=== PATIENT | female | born 1955 | race Caucasian/White ===

== ENCOUNTER 2022-09-29 20:06 | Emergency (ER) | payer OTHER, SELFPAY ==
[2022-09-29] VITALS (8 sets, daily range): BP systolic 118–132; BP diastolic 67–84; PULSE 61–74; RESP 14–19; TEMP 36.3; O2SAT 96–100; BMI 29.2
--- NOTE | 2022-09-29 20:16 | DI.CT.S_ITS ---
5PROCEDURE: CT ANGIO HEAD AND NECK INDICATIONS: double vision 1600,sx resolved now. TECHNIQUE: Pre-contrast 4.5 mm thick sections acquired from the foramen magnum to the vertex. After the administration of intravenous contrast, 1 mm thick sections acquired from the aortic arch through the [place]. Post-contrast 4.5 mm thick sections then re-acquired from the foramen magnum to the vertex. 3-dimensional batjfsx-iebvwpdhg-zfxcxiimld (MIP) and/or volume rendering reformats were acquired of the central intracranial vasculature and neck separately. For radiation dose reduction, the following was used: automated exposure control, adjustment of mA and/or kV according to patient size. COMPARISON: None. FINDINGS: Image quality: Excellent. BRAIN: CSF spaces: Ventricles are normal in size and shape. Basal cisterns are patent. No extra-axial fluid collections. Brain: No midline shift. No intracranial bleeds or masses. [place]-white matter interface appears intact. Skull and face: Calvarium and facial bones appear intact, without suspicious lesions. Orbits appear normal. Sinuses: Sinuses and mastoids are clear which appears hypoplastic HEAD CT ANGIOGRAPHY: Anterior circulation: Intracranial internal carotid arteries are normal in size and flow. The flow within the paired anterior cerebral arteries is normal and symmetric. The flow within the middle cerebral arteries is normal and symmetric. The anterior communicating artery is seen. No aneurysms are seen. Posterior circulation: Visualized portions of the vertebral arteries demonstrate normal caliber, and join to form a normal appearing basilar artery. Flow within the posterior cerebral arteries is normal and symmetric. No aneurysms are seen. NECK CT ANGIOGRAPHY: Carotid system: The great vessels demonstrate a conventional anatomy as they arise from the aortic arch. The origins of the common carotid arteries appear patent. The common carotid arteries demonstrate normal caliber and courses. The bifurcation regions are both widely patent. The internal carotid arteries demonstrate normal calibers and courses. Posterior circulation: The origins of the vertebral arteries both appear widely patent. The more superior extracranial portions of both vertebral arteries also demonstrate normal courses and calibers. They join to form a normal appearing basilar artery. Soft tissues: Visualized neck soft tissues demonstrate no suspicious abnormalities. Bones: No suspicious bony lesions. Visualized cervical spine appears normally aligned. IMPRESSION: No arterial abnormality seen, no lesion identified in the skull base or occipital region bilaterally. Orbits appear normal, source of current symptoms is not seen. Any quantitative measurements of stenosis were performed using NASCET criteria. Dictated by: Hakan Briggs M.D. on 09/29/2022 at 21:09 Approved by: Hakan Briggs M.D. on 09/29/2022 at 21:13
[2022-09-29 21:01] LABS: Add Manual Diff / Slide Review NO; Basophils Absolute Auto 100 /uL (0-100); Basophils Percent Auto 1.1 % (0-2); Eosinophils Absolute Auto 100 /uL (0-450); Eosinophils Percent Auto 1.9 % (2-4); Hematocrit 38.1 % (36-46); Hemoglobin 13.3 g/dL (12.0-16.0); Lymphocytes Absolute Auto 2200 /uL (1100-4500); Mean Corpuscular HGB Conc 34.8 % (30-36); Mean Corpuscular Hemoglobin 32.4 PG (26-34); Monocytes Absolute Auto 600 /uL (0-900); Monocytes Percent Auto 10.3 % (3-14); Neutrophils Absolute Auto 3100 /uL (1500-7000); Neutrophils Percent Auto 50.7 % (50-75); Platelet Count 202 X10^3/uL (150-400); Red Blood Cell Count 4.09 X10^6/uL (4.0-5.2); Red Cell Distribution Width 12.6 % (11.6-14.8); White Blood Cell Count 6.1 X10^3/uL (4.5-11.0)
[2022-09-29 21:12] LABS: Alanine Aminotransferase 28 IU/L (<35); Albumin 4.3 g/dL (3.5-5.0); Albumin Globulin Ratio 1.3 (1.0-2.8); Alkaline Phosphatase 51 U/L (38-126); Aspartate Aminotransferase 27 IU/L (14-36); BUN Creatinine Ratio 14.7 (6-22); Bilirubin Total 0.4 mg/dL (0.2-1.3); Blood Urea Nitrogen 14 mg/dL (7-17); Calcium 8.9 mg/dL (8.4-10.2); Carbon Dioxide 25 mmol/L (22-32); Chloride 105 mmol/L (98-107); Estimated Glomerular Filt Rate > 60 mL/min (>60); Globulin 3.2 g/dL (1.7-4.1); Glucose 88 mg/dL (80-110); HEMOLYSIS < 15 (0-50); Sodium 139 mmol/L (137-145); Total Protein 7.5 g/dL (6.3-8.2)
[2022-09-29 21:29] LABS: Creatine Kinase 248 U/L (30-135)
[2022-09-29 21:42] LABS: Troponin I < 0.012 ng/mL (0.01-0.034)
[2022-09-29 21:44] LABS: CKMB % Relative Index 0.4 % (1.5-5.0); Creatine Kinase MB 1.04 ng/mL (<2.37)
--- NOTE | 2022-09-29 22:14 | ED_ITS ---
HPI - Eye Problem General Chief complaint: Eye Problems Stated complaint: Double vision Time Seen by Provider: 09/29/22 21:00 Source: patient Mode of arrival: Ambulatory History of Present Illness HPI Narrative: Patient is a 67-year-old female history of hyperlipidemia depression presents today with double vision lasting for a couple of hours. She reports that she was out on the boat today in the heat when she started noticing double vision. He states that awhile she saw 2 of everything, however when she used binocular hours she then only saw 1. She denies drinking any alcohol or any other drugs. She was staying hydrated. She was feeling her normal self this morning. Symptoms have completely resolved now. She denies any loss of vision no numbness tingling weakness facial droop confusion or other symptoms. Related Data Allergies Allergy/AdvReac Type Severity Reaction Status Date / Time No Known Drug Allergies Allergy Verified 09/29/22 20:11 Review of Systems Review of Systems ROS Unobtainable: All systems reviewed & are unremarkable except as noted in HPI and below Patient History Social History Smoking Status: Unknown if ever smoked Smoking Status: Unknown if ever smoked alcohol intake frequency: holidays/special occasions only Substance Use Type: does not use Exam Initial Vital Signs Initial Vital Signs: Vital Signs Temperature 97.4 F L 09/29/22 20:11 Pulse Rate 71 09/29/22 20:11 Respiratory Rate 15 09/29/22 20:11 Blood Pressure 122/74 09/29/22 20:11 Pulse Oximetry 97 09/29/22 20:11 Oxygen Delivery Method Room Air 09/29/22 20:11 GENERAL: Alert pleasant 67-year-old female HEENT: Head atraumatic,EOMI, pupils reactive, face symmetric, moist mucous membranes CARDIOVASCULAR: Regular rate and rhythm without murmurs, rubs or gallops. RESPIRATORY: Breath sounds equal bilaterally, no wheezes rales or rhonchi. ABDOMEN: Soft, nontender. Normoactive bowel sounds all 4 quadrants. No guarding or rebound. EXTREMITIES: Normal range of motion, no clubbing or edema. Neurovascularly intact NEUROLOGICAL: Alert and oriented x4.Normal gait and speech. Cranial nerves II through XII grossly intact. Good suagkp-pp-dtli, good mpxd-da-dckw, strength equal bilaterally, no dysarthria or aphasia, sensation in tact to soft touch bilaterally, no visual changes, no facial droop SKIN: Warm, dry, no laceration, no petechiae, no rashes or lesions. Scores NIH Stroke Scale Level of Conciousness: Alert, keenly responsive Ask month/age: Answers both questions correctly. Open/close eyes, close hand: Performs both tasks correctly Best gaze horizontal: Normal Visual kessler: No visual loss Facial palsy: Normal symetrical movement Left arm drift: No drift for full 10 sec Right arm drift: No drift for full 10 sec Left leg drift: No drift for full 5 sec Right leg drift: No drift for full 5 sec Limb ataxia: Absent Sensory on face/arms/legs: Normal, no sensory loss Best language: No aphasia, normal Dysarthria: Normal Extinction or inattention: No abnormality Total NIH Stroke scale score: 0 Course Orders Ordered: ED Orders 09/29/22 20:16 CT angio head and neck Stat EKG-12 Lead Stat 09/29/22 20:20 Complete Blood Count AUTO DIFF Stat Comprehensive Metabolic Panel Stat Troponin & CK Cardiac Panel Stat Vital Signs Vital signs: Vital Signs - 8 hr 09/29/22 22:00 09/29/22 22:00 09/29/22 22:30 Pulse Rate 64 61 Respiratory Rate 16 15 Blood Pressure 130/75 Pulse Oximetry 97 96 MDM - Eye Problem Lab Data 09/29/22 20:20 09/29/22 20:20 Labs: Lab Results 09/29/22 09/29/22 09/29/22 Range/Units 20:20 20:20 20:20 WBC 6.1 (4.5-11.0) X10^3/uL RBC 4.09 (4.0-5.2) X10^6/uL Hgb 13.3 (12.0-16.0) g/dL Hct 38.1 (36-46) % MCV 93.0 (80-100) fL MCH 32.4 (26-34) PG MCHC 34.8 (30-36) % RDW 12.6 (11.6-14.8) % Plt Count 202 (150-400) X10^3/uL Neut % (Auto) 50.7 (50-75) % Lymph % (Auto) 36.0 (25-40) % [place] % (Auto) 10.3 (3-14) % Eos % (Auto) 1.9 L (2-4) % Baso % (Auto) 1.1 (0-2) % Neut # (Auto) 3100 (7060-5180) /uL Lymph # (Auto) 2200 (9609-8086) /uL [place] # (Auto) 600 (0-900) /uL Eos # (Auto) 100 (0-450) /uL Baso # (Auto) 100 (0-100) /uL Sodium 139 (137-145) mmol/L Potassium 4.0 (3.4-5.1) mmol/L Chloride 105 (98-107) mmol/L Carbon Dioxide 25 (22-32) mmol/L BUN 14 (7-17) mg/dL Creatinine 0.95 (0.52-1.04) mg/dL Estimated GFR > 60 (>60) mL/min BUN/Creatinine Ratio 14.7 (6-22) Glucose 88 (80-110) mg/dL Calcium 8.9 (8.4-10.2) mg/dL Total Bilirubin 0.4 (0.2-1.3) mg/dL AST 27 (14-36) IU/L ALT 28 (<35) IU/L Alkaline Phosphatase 51 (38-126) U/L Total Creatine Kinase 248 H (30-135) U/L CK-MB (CK-2) 1.04 (<2.37) ng/mL CK-MB (CK-2) Rel Index 0.4 L (1.5-5.0) % Troponin I < 0.012 (0.01-0.034) ng/mL Total Protein 7.5 (6.3-8.2) g/dL Albumin 4.3 (3.5-5.0) g/dL Globulin 3.2 (1.7-4.1) g/dL Albumin/Globulin Ratio 1.3 (1.0-2.8) Imaging Data CTA - brain/neck: Radiologist's Impression: 5PROCEDURE:? CT ANGIO HEAD AND NECK ? INDICATIONS:? double vision 1600,sx resolved now. ? TECHNIQUE:? Pre-contrast 4.5 mm thick sections acquired from the foramen magnum to the vertex.? After the administration of intravenous contrast, 1 mm thick sections acquired from the aortic arch through the [place] of [place].? Post-contrast 4.5 mm thick sections then re- acquired from the foramen magnum to the vertex.? 3-dimensional kinxnii-ikmgqhtsv-ujvjamgsiu (MIP) and/or volume rendering reformats were acquired of the central intracranial vasculature and neck separately. For radiation dose reduction, the following was used:? automated exposure control, adjustment of mA and/or kV according to patient size.? ? COMPARISON:? None. ? FINDINGS:? Image quality:? Excellent.? ? BRAIN:? CSF spaces:? Ventricles are normal in size and shape.? Basal cisterns are patent.? No extra-axial fluid collections.? ? Brain:? No midline shift.? No intracranial bleeds or masses.? [place]-white matter interface appears intact.? ? Skull and face:? Calvarium and facial bones appear intact, without suspicious lesions.? Orbits appear normal.? ? Sinuses:? Sinuses and mastoids are clear which appears hypoplastic? ? HEAD CT ANGIOGRAPHY:? Anterior circulation:? Intracranial internal carotid arteries are normal in size and flow.? The flow within the paired anterior cerebral arteries is normal and symmetric.? The flow within the middle cerebral arteries is normal and symmetric.? The anterior communicating artery is seen.? No aneurysms are seen.? ? Posterior circulation:? Visualized portions of the vertebral arteries demonstrate normal caliber, and join to form a normal appearing basilar artery.? Flow within the posterior cerebral arteries is normal and symmetric.? No aneurysms are seen.? ? NECK CT ANGIOGRAPHY:? Carotid system:? The great vessels demonstrate a conventional anatomy as they arise from the aortic arch.? The origins of the common carotid arteries appear patent.? The common carotid arteries demonstrate normal caliber and courses.? The bifurcation regions are both widely patent.? The internal carotid arteries demonstrate normal calibers and courses.? ? Posterior circulation:? The origins of the vertebral arteries both appear widely patent.? The more superior extracranial portions of both vertebral arteries also demonstrate normal courses and calibers.? They join to form a normal appearing basilar artery.? ? Soft tissues:? Visualized neck soft tissues demonstrate no suspicious abnormalities.? ? Bones:? No suspicious bony lesions.? Visualized cervical spine appears normally aligned.? IMPRESSION:? No arterial abnormality seen, no lesion identified in the skull base or occipital region bilaterally.? Orbits appear normal, source of current symptoms is not seen. ? Any quantitative measurements of stenosis were performed using NASCET criteria.? ? ? Dictated by: Hakan Briggs M.D. on 09/29/2022 at 21:09 ?? ECG Data Interpretation: Sinus rhythm rate 62 WI interval 146 QRS [address] changes no T-wave inversions MDM Narrative Medical decision making narrative: Patient 67-year-old female presenting today with double vision while out on a boat in the heat it was only around 80 not excessively hot. Double vision lasted for a few hours and persisted even if 1 eye was closed but resolved while looking through binocular. She denies any loss of vision or signs of retinal detachment or hemianopsia. No numbness tingling weakness. She denies any floaters. She reports that she ate and stayed hydrated. She would any stroke scale of 0 no other concerning symptoms. Blood work is reassuring without leukocytosis anemia electrolyte abnormality ABENA. CT angio does not show any abnormality. EKG is within normal limits troponin is also negative. [place] she is wanting to continue to travel out of state. Recommend that she go to the nearest emergency department if this happens again. Discharge Plan Departure Patient Disposition: Home Clinical Impression: Double vision Instructions: DI for Double Vision Activity Restrictions/Additional Instructions: *You have been diagnosed with double vision *What to do: At this time workup in the emergency department is overall reassuring. If this happens again I do recommend he go the nearest emergency department for evaluation. I also recommend that he follow-up with Optometry or Ophthalmology as well *Continue to take medications as directed *Follow up with your primary care provider in 2-3 days or call [phone] *Return to ER if you should have recurrent persistent symptoms confusion facial droop numbness tingling weakness or any new, worsening or concerning symptoms Stand Alone Forms: Patient Portal/API
== END 2022-09-29 22:35 | disposition home or self-care (01) ==
PROVIDERS: Emergency Provider Emergency Medicine
DX: H53.2 Diplopia (principal); R07.9 Chest pain, unspecified
CPT/HCPCS: 36415; 70496; 70498; 80053; 82550; 82553; 84484; 85025; 93005; 99283; 99284; Q9967